=== PATIENT | male | born 1970 | race Hispanic/Latino ===

== ENCOUNTER 2017-10-23 05:46 | Emergency (ER) | payer OTHER, SELFPAY ==
[2017-10-23] MEDS ORDERED: Acetaminophen 500 MG TAB ONE (06:30)
[2017-10-23] MEDS ORDERED: Ibuprofen 800 MG TAB ONE (06:31)
[2017-10-23] MEDS ORDERED: Ondansetron ODT 4 MG TAB ONE (06:31)
== END 2017-10-23 06:50 | disposition home or self-care (01) ==
LOC: ERS 05:46
DX: J11.1 Influenza due to unidentified influenza virus with other respiratory manifestations (principal)
CPT/HCPCS: 87081; 87430; 87804; 99284; Q0162